=== PATIENT | male | born 1985 | race Caucasian/White ===

== ENCOUNTER 2016-12-05 15:36 | Emergency (ER) | payer OTHER ==
[2016-12-05] MEDS ORDERED: NS 1,000 ML IV ONE ×3 (15:57→17:22)
--- NOTE | 2016-12-05 16:02 | EDPHY ---
H & P Stated Complaint: elevated BGL (>200)- not diagnosed diabetic?, fatigued Time Seen by Provider: 12/05/16 15:46 HPI/ROS: Chief complaint: New onset diabetes History of present illness: This is a 31-year-old male who was sent to the emergency department by his primary care doctor for possible new onset diabetes. Patient reports for the last few weeks he has felt unwell, he reports fatigue, somnolence, increased thirst and increased urination. He saw his primary care doctor who obtained blood studies today. When he got home his primary care doctor called until his blood sugar was elevated knee is go to the emergency department. Patient does not have a history of diabetes. Review of systems: A 10 point review of systems was obtained and other than described above was negative - Personal History Current Tetanus/Diphtheria Vaccine: Yes Current Tetanus Diphtheria and Acellular Pertussis (TDAP): Yes - Medical/Surgical History Hx Asthma: Yes Hx Chronic Respiratory Disease: No Hx Diabetes: No Hx Cardiac Disease: No Hx Renal Disease: No Hx Cirrhosis: No Hx Alcoholism: No Hx HIV/AIDS: No Hx Splenectomy or Spleen Trauma: No Other PMH: excercise induced asthma, hypothyroid, TAISHA, depression - Social History Smoking Status: Never smoked - Physical Exam Exam: General Appearance: Alert, nontoxic. Eyes: Pupils equal and round no pallor or injection. ENT, Mouth: Mucous membranes moist. Respiratory: There are no retractions, lungs are clear to auscultation. Cardiovascular: Regular rate and rhythm. Gastrointestinal: Abdomen is soft and nontender, no masses, bowel sounds normal. Neurological: Alert and oriented. Cranial nerves 2-12 grossly intact. Strength and sensation intact and symmetrical. Ambulating without difficulty. Skin: Warm and dry, no rashes. Musculoskeletal: Neck is supple nontender. Extremities are symmetrical, full range of motion. Psychiatric: Patient is oriented X 3, there is no agitation. Constitutional: Initial Vital Signs Temperature (C) 36.7 C 12/05/16 15:37 Heart Rate 89 12/05/16 15:37 Respiratory Rate 16 12/05/16 15:37 Blood Pressure 186/110 H 12/05/16 15:37 O2 Sat (%) 96 12/05/16 15:37 O2 Delivery Mode Room Air Allergies/Adverse Reactions: cefaclor [From [facility]] Allergy (Verified 04/10/13 14:31) erythromycin base [Erythromycin Base] Allergy (Verified 04/10/13 14:31) oxycodone HCl [From Percocet] Allergy (Verified 04/10/13 14:31) Penicillins Allergy (Verified 04/10/13 14:31) Sulfa (Sulfonamide Antibiotics) Allergy (Verified 04/10/13 14:31) Home Medications: Medication Instructions Recorded Metoprolol Succinate 12/05/16 Prozac 10 MG (*) 12/05/16 Synthroid 12/05/16 Trileptal 12/05/16 Xanax 0.25 MG (*) 12/05/16 Medical Decision Making ED Course/Re-evaluation: Patient discussed with my secondary supervising physician Dr. Salas Killian. Patient presents to the emergency department for evaluation of elevated blood sugar and concern for new onset diabetes. I have reviewed his blood studies, he did appear to have elevated blood sugar today. His A1c is up as well. He has been IV hydrated. H&H is improved, he does have a known history of polycythemia that has been evaluated extensively. Elevated potassium discussed with my attending physician Dr. Slaughter, likely spurous result. I am awaiting a call back from his primary care doctor to see if she wants me to start him on metformin. He will be discharged home to follow up in her clinic for further evaluation and care this week. Strict return precautions will be given. I have discussed all this with the patient voiced understanding and agreement with plan. Differential Diagnosis: Included but not limited to new onset diabetes, DKA, HHNK - Data Points Laboratory Results: Laboratory Results 12/05/16 16:00 12/05/16 19:00 Medications Given: Discontinued Medications Sodium Chloride (Ns) 1,000 mls @ 0 mls/hr IV ONCE ONE PRN Reason: Wide Open Stop: 12/05/16 15:58 Last Admin: 12/05/16 16:15 Dose: 1,000 mls Sodium Chloride (Ns) 1,000 mls @ 0 mls/hr IV ONCE ONE PRN Reason: Wide Open Stop: 12/05/16 15:58 Last Admin: 12/05/16 16:57 Dose: 1,000 mls Sodium Chloride (Ns) 1,000 mls @ 0 mls/hr IV ONCE ONE PRN Reason: Wide Open Stop: 12/05/16 17:23 Last Admin: 12/05/16 17:42 Dose: 1,000 mls Departure - Departure Disposition: Home, Routine, Self-Care Clinical Impression: Hyperglycemia Condition: Good Instructions: Type 2 Diabetes in Adults (ED) Additional Instructions: Follow-up with your primary care doctor this week for recheck Please let your primary care doctor know that your hemoglobin A1c is 7.6 If symptoms worsen or new symptoms develop return to the emergency department for recheck Referrals: Rand Hector MD [Primary Care Provider] - As per Instructions
[2016-12-05 16:23] LABS: % IMMATURE GRANULYOCYTES 0.2 % (0.0-1.1); ABSOLUTE IMMATURE GRANULOCYTES 0.01 10^3/uL (0.00-0.10); ADD DIFF? NO; ADD MORPH? NO; ADD SCAN? NO; ATYPICAL LYMPHOCYTE FLAG 0 (0-99); FRAGMENT RBC FLAG 0 (0-99); LEFT SHIFT FLG 0 (0-99); LIPEMIA HEMOLYSIS FLAG 90 (0-99); MEAN CELL HEMOGLOBIN 30.9 pg (27.9-34.1); MEAN CELL HEMOGLOBIN CONCENTR. 35.7 g/dL (32.4-36.7); MEAN CELL VOLUME 86.7 fL (81.5-99.8); MEAN PLATELET VOLUME 10.1 fL (8.7-11.7); PLATELET CLUMPS FLAG 20 (0-99); PLATELET COUNT 221 10^3/uL (150-400); RED BLOOD CELL COUNT 7.28 10^6/uL (4.40-6.38); RED CELL DISTRIBUTION WIDTH 13.6 % (11.5-15.2)
[2016-12-05 16:26] LABS: HEMATOCRIT 63.1 % (40.0-51.0); HEMOGLOBIN 22.5 g/dL (13.7-17.5)
--- NOTE | 2016-12-05 16:32 | CPEKG ---
Heart Rate: 87 RR Interval: 690 P-R Interval: 164 QRSD Interval: 86 QT Interval: 368 QTC Interval: 443 P Ralston: 48 QRS Ralston: 82 T Wave Ralston: 80 EKG Severity - ABNORMAL ECG - EKG Impression: SINUS RHYTHM EKG Impression: ABNRM R PROG, CONSIDER ASMI OR LEAD PLACEMENT Electronically Signed By: Timur Sandoval 05-Dec-2016 23:11:44
[2016-12-05 16:33] LABS: COLOR YELLOW; LEUKOCYTE ESTERASE,URINE NEGATIVE (NEGATIVE); NITRITE,URINE NEGATIVE (NEGATIVE)
[2016-12-05 16:59] VITALS: RESP 16
[2016-12-05 17:09] LABS: ANION GAP 14 mEq/L (8-16); CALCIUM 10.6 mg/dL (8.5-10.4); CARBON DIOXIDE 23 mEq/l (22-31); CHLORIDE 101 mEq/L (97-110); CREATININE 0.9 mg/dL (0.7-1.3); GLOMERULAR FILTRATION RATE > 60; GLUCOSE 143 mg/dL (70-100); POTASSIUM 4.6 mEq/L (3.5-5.2); SODIUM 138 mEq/L (134-144)
[2016-12-05 17:19] LABS: HEMOGLOBIN A1C 7.6 % (4.0-6.0)
[2016-12-05 17:19] LABS: TROPONIN I 0.021 ng/mL (0-0.034)
[2016-12-05 19:22] LABS: ANION GAP 8 mEq/L (8-16); CALCIUM 8.8 mg/dL (8.5-10.4); CARBON DIOXIDE 23 mEq/l (22-31); CHLORIDE 105 mEq/L (97-110); CREATININE 0.8 mg/dL (0.7-1.3); GLOMERULAR FILTRATION RATE > 60; GLUCOSE 163 mg/dL (70-100); POTASSIUM 5.7 mEq/L (3.5-5.2); SODIUM 136 mEq/L (134-144)
[2016-12-05 19:23] LABS: SPECIMEN HEMOLYSIS 392
[2016-12-05 20:06] VITALS: BP 150/105; PULSE 94; TEMP 98.1; O2SAT 91
== END 2016-12-05 20:08 | disposition home or self-care (01) ==
DX: E11.65 Type 2 diabetes mellitus with hyperglycemia (principal); J45.909 Unspecified asthma, uncomplicated
CPT/HCPCS: 82947-QW

== ENCOUNTER → 2017-03-28 | Outpatient (CLI) | payer OTHER | LOC: FIMAGING 10:58 | PROVIDERS: ATTEND Family Medicine | DX: E34.8 Other specified endocrine disorders (principal); R10.2 Pelvic and perineal pain; Z79.899 Other long term (current) drug therapy ==

== ENCOUNTER → 2018-11-03 | Outpatient (CLI) | payer OTHER | LOC: FCPNEURO 23:26 | PROVIDERS: ATTEND Student in an Organized Health Care Education/Training Program | DX: G47.33 Obstructive sleep apnea (adult) (pediatric) (principal) ==